=== PATIENT | male | born 1975 | race Caucasian/White ===

== ENCOUNTER → 2017-12-07 10:03 | Outpatient (CLI) | payer MEDICARE | END | disposition home or self-care (01) | LOC: D.NM 10:03 | DX: K31.84 Gastroparesis (principal) ==

== ENCOUNTER → 2019-06-27 14:12 | Outpatient (CLI) | payer MEDICARE ==
[2019-06-27 14:47] LABS: BASOPHILS 0.2 % (0-2); EOSINOPHILS 3.3 % (0-7); HEMATOCRIT 42.8 % (42.0-54.0); HEMOGLOBIN 15.4 g/dL (13.5-17.5); IMMATURE GRANULOCYTES 0.1 % (0-5); MCH 29.7 pg (26.0-34.0); MCV 82.5 fL (80.0-100.0); MEAN PLATELET VOLUME 10.4 fL (7.4-10.4); MONOCYTES 10.1 % (2-11); NEUTROPHILS 48.3 % (40-80); PLATELET COUNT 365 10x3/uL (130-400); RBC 5.19 10x6/uL (4.20-6.10); RDW 12.8 % (11.5-14.5); WBC 8.2 10x3/uL (4.8-10.8)
== END | disposition home or self-care (01) ==
LOC: D.RAD 14:12 → D.RT 14:30
PROVIDERS: ATTEND Internal Medicine Pulmonary Disease
DX: J45.909 Unspecified asthma, uncomplicated (principal)